=== PATIENT | male | born 1970 | race Caucasian/White ===

== ENCOUNTER 2021-07-16 13:59 | Emergency (ER) | payer OTHER, SELFPAY ==
[2021-07-16 14:20] VITALS: BP 123/96; PULSE 105; RESP 18; TEMP 37.7; O2SAT 94
--- NOTE | 2021-07-16 17:22 | PC.NURSE ---
Called pt to room at [phone] with no answer
== END 2021-07-16 18:48 | disposition left against medical advice (07) ==
PROVIDERS: PCP Internal Medicine
DX: R05.9 Cough, unspecified (principal)
CPT/HCPCS: 99199

== ENCOUNTER 2023-09-05 03:30 | Emergency (ER) | payer BC, SELFPAY ==
--- NOTE | ~2023-09-05 | CT_ITS ---
Non-contrast CT scan of the Abdomen and Pelvis Clinical indication: Flank pain Technique: 2.5 mm axial scans were obtained through the abdomen and pelvis without intravenous or or al contrast. Dose reduction technique was used on this scan by utilizing automated exposure control a nd iterative reconstruction technique. The dose-length product (DLP) was 878.03 mGy-cm. Findings: Images through the lung bases reveal no abnormalities. There is an 8 mm stone at the very proximal left ureter, with associated mild left hydronephrosis. 4 mm nonobstructing right renal stone present. No right ureteral stone or right hydronephrosis. Bilater al renal cysts are noted. Small hepatic cysts are present. The spleen, pancreas, gallbladder, and adrenals appear normal. Ther e is no aortic aneurysm. There is no evidence of bowel obstruction. Images through the pelvis were performed. There is no evidence of ascites or lymphadenopathy. Urinary bladder unremarkable. No pelvic mass seen. Impression: 8 mm proximal left ureteral stone with associated mild left hydronephrosis. 4 mm nonobstructing right renal stone. Reviewed, dictated and finalized at [facility]. MILL GRINDER Impression: 8 mm proximal left ureteral stone with associated mild left hydronephrosis. 4 mm nonobstructing right renal stone.
[2023-09-05 03:33] VITALS: BP 150/94; PULSE 83; RESP 16; TEMP 36.4; O2SAT 98
[2023-09-05 03:52] LABS: Basophils Percent Auto 0.3 % (0.2-1.2); Eosinophils Absolute Auto 0.2 K/mm3 (0-0.3); Eosinophils Percent Auto 2.1 % (0-4.4); Hematocrit 43.4 % (42.0-52.0); Immature Granulocyte Absolute 0.01 K/mm3 (0.00-0.031); Immature Granulocyte Percent A 0.1 % (0-0.5); Lymphocytes Absolute Auto 1.58 K/mm3 (0.9-3.2); Mean Corpuscular HGB Conc 34.6 g/dl (32-36); Mean Corpuscular Hemoglobin 32.7 pg (26-34); Mean Corpuscular Volume 94.6 fl (80-100); Mean Platelet Volume 9.3 fl (7.4-10.4); Monocytes Absolute Auto 0.6 K/mm3 (0.1-0.6); Monocytes Percent Auto 7.3 % (2.6-8.5); Neutrophils Absolute Auto 6.3 K/mm3 (1.3-6.7); Neutrophils Percent Auto 72.2 % (45.5-73.1); Platelet Count Result 298 k/mm3 (150-375); Red Blood Count 4.59 M/mm3 (4.6-6.20); Red Cell Distribution Width 12.4 % (11.5-14.5); White Blood Count 8.8 K/mm3 (4.5-10.0)
[2023-09-05 03:57] LABS: Appearance Urine Clear (Clear); Bacteria Urine None Seen /hpf; Bilirubin Urine Negative (Negative); Blood Urine 2+ (Negative); Color Urine Yellow (Yellow); Glucose Urine UA Negative (Negative); Ketones Urine Negative (Negative); Leukocyte Esterase Ur 2+ LEU/UL (Negative); Nitrate Urine Negative (Negative); Protein Urine Negative (Negative); Specific Grav Ur 1.017 (1.001-1.035); Squamous Epithelial Cell Urine Occasional /hpf (Few); Urobilinogen Urine 0.2 mg/dL (<2.0); WBC Urine 21-50 /hpf; pH Urine 5.5 (5.0-9.0)
[2023-09-05 04:01] LABS: Alanine Aminotransferase 25 U/L (6-50); Albumin Level 4.5 g/dL (3.5-5.1); Alkaline Phosphatase 71 U/L (38-126); Anion Gap 8 mmol/L (8-16); Aspartate Amino Transferase 28 U/L (17-59); Bilirubin,Total 0.6 mg/dL (0.2-1.3); Blood Urea Nitrogen 18 mg/dL (9-20); Calcium 10.2 mg/dL (8.4-10.2); Carbon Dioxide 30 mmol/L (22-30); Chloride 101 mmol/L (98-107); Estimated CRCL calculation 70 ml/min; Estimated Glomerular Filt Rate > 60; Glucose 117 mg/dL (65-110); Potassium 3.6 mmol/L (3.4-5.0); Sodium 139 mmol/L (137-145)
[2023-09-05 04:02] LABS: Lactic Acid Reflex 1.2 mmol/L (0.7-2.0)
[2023-09-05 04:04] LABS: Add Urine Microscopic? YES
[2023-09-05 06:01] VITALS: BP 146/97; PULSE 68; RESP 15; O2SAT 97
--- NOTE | 2023-09-05 06:34 | ED.ABDPAIN ---
HPI - Abdominal Pain General Chief Complaint: Abdominal Pain Stated Complaint: l side pain Time Seen by Provider: 09/05/23 06:20 History of Present Illness HPI narrative: Patient is a 53-year-old male who presents to the emergency department this evening complaining of left-sided flank pain. who is currently present at bedside states that the pain will come up from sleep and patient normally has a high pain tolerance and does not complain of much pain. By the time patient arrived to the emergency department, patient states that his pain has improved. He states that the pain does come and go. Patient denies any history of kidney stones in the past. He admits that his urine has been resting in color. Denies any dysuria. Patient denies any nausea or vomiting, admits that the pain starts in his left flank region and radiates to his left mid abdomen. Patient also denies any constipation or diarrhea, melena or hematochezia, fevers or chills. There are no other modifying, alleviating, or precipitating factors at this time. Related Data Allergies Allergy/AdvReac Type Severity Reaction Status Date / Time No Known Allergies Allergy Verified 09/22/17 22:45 Review of Systems Review of Systems: All systems are reviewed and are negative unless stated otherwise in the HPI. PMFSH Comments Denies any significant past medical or surgical history, denies any family history and denies any tobacco use, alcohol abuse or illicit drug use. Exam Narrative: General: Alert, awake, afebrile, in no acute distress. HEENT: PERRL, no rhinorrhea, no post nasal drip, oropharynx clear. Neck: Trachea midline, no JVD, no lymphadenopathy. Cardiovascular: Regular rate and rhythm, no murmurs, rubs or gallops, no peripheral edema. Respiratory: Clear to auscultation bilaterally, no tachypnea, no wheezing, no rhonchi, no rubs, no respiratory distress. Abdomen: Soft, nontender, nondistended, no rebound, no guarding, no peritoneal signs. Musculoskeletal: No joint swelling or deformity, normal muscle tone. Skin: No rashes or petechia, no signs of infection. Psychiatric: Alert and oriented, normal behavior and judgment for situation. Neurological: Alert and oriented to person, place, and time. Follows all commands. No focal deficits, speech is clear and fluent. Course Vital Signs Vital signs: Vital Signs Temperature 97.5 F L 09/05/23 03:33 Pulse Rate 83 09/05/23 03:33 Respiratory Rate 16 09/05/23 03:33 Blood Pressure 150/94 H 09/05/23 03:33 Pulse Oximetry 98 09/05/23 03:33 Oxygen Delivery Room Air 09/05/23 03:33 Temperature 97.5 F L 09/05/23 03:33 Pulse Rate 68 09/05/23 06:01 Respiratory Rate 15 09/05/23 06:01 Blood Pressure 146/97 H 09/05/23 06:01 Pulse Oximetry 97 09/05/23 06:01 Oxygen Delivery Room Air 09/05/23 03:33 MDM - Abdominal Pain MDM Narrative Medical decision making narrative: The patient was evaluated by myself in the emergency department. History is obtained from patient who is an independent historian along with present at bedside and physical exam was performed. External medical records were reviewed at this time. IV was established and pertinent tests were ordered. Patient was administered 50 mg of IV Toradol and 4 mg IV Zofran. Laboratory results obtained revealing no acute process. Urinalysis revealed 2+ blood. Imaging studies obtained included CT abdomen and pelvis with IV contrast which was independently interpreted by me revealing an 8 mm proximal left ureteral stone with associated mild left hydronephrosis and a 4 mm nonobstructing right renal stone. CT currently pending final radiology interpretation. Differential diagnosis considerations include kidney stones, musculoskeletal strain and pyelonephritis. Comorbidities impacting this visit include none. I have evaluated and discussed social determinants of health with the patient that could potentially impact subseq
[2023-09-05] MEDS: ONDANSETRON INJ 4 MG/2 ML VIAL IV PUSH (06:36)
[2023-09-05] MEDS: KETOROLAC 15 MG/ML VIAL (*BKC) IV PUSH (06:37)
== END 2023-09-05 06:50 | disposition home or self-care (01) ==
PROVIDERS: Emergency Provider Emergency Medicine; PCP Internal Medicine
DX: N20.0 Calculus of kidney (principal); R31.9 Hematuria, unspecified; R10.9 Unspecified abdominal pain
CPT/HCPCS: 36415; 74176; 80053; 81001; 83605; 85025; 87086; 96361; 96374; 96375; 99284; J1885; J2405

== ENCOUNTER 2023-09-10 10:40 | Outpatient (CLI) | payer BC, SELFPAY ==
--- NOTE | ~2023-09-10 | XR_ITS ---
EXAMINATION: XR abdomen/kub 1V DATE: 09/10/2023 10:54 INDICATION: Left ureteral stone. TECHNIQUE: A supine view of the abdomen on 2 radiographs was obtained. COMPARISON: CT abdomen and pelvis 09/05/23 FINDINGS: There are no dilated loops of bowel. There is a 10 x 4 mm stone in proximal left ureter. Th ere are phleboliths in the pelvis. IMPRESSION: 1. 10 x 4 mm stone in proximal left ureter. Reviewed, dictated and finalized at location A.
== END 2023-09-10 10:41 ==
PROVIDERS: PCP Urology; Visit Provider Urology
DX: N20.1 Calculus of ureter (principal)
CPT/HCPCS: 74018

== ENCOUNTER 2023-09-14 01:15 | Day surgery (SDC) | payer BC, SELFPAY ==
[2023-09-13 14:05] VITALS: BMI 31.6
--- NOTE | 2023-09-13 14:09 | PC.NURSE ---
Report to the Outpatient Waiting Room, entrance under the green pavilion located off [facility], at time 0900 on date 09/14/23. Planned Procedure Time: 1100. Time changes happen often and if your time is changed the preop area will call you the afternoon before. - You and your visitor will be asked to self-screen and do not enter if you have any COVID symptoms. - A mask is optional within the hospital at this time. Patients may have clear liquids (water, carbonated beverages, clear teas, apple juice) until 3 hours prior to surgery with a maximum of 20 ounces. - No food from midnight until time of surgery Take the following medications with a SIP of water the morning of surgery: PAIN PILL IF NEEDED DO NOT STOP ANY OF YOUR OTHER PRESCRIPTION MEDICATIONS PRIOR TO SURGERY ?EXCEPT THE FOLLOWING Medications to discontinue per physician: IBUPROFEN Date to take last dose: NO MORE UNTIL AFTER SURGERY Please no make-up, nail estonian, hairspray, perfume, deodorant, or body powder the day of surgery. No jewelry (including any body piercings) or valuables the day of surgery, leave them at home. Please take a shower or bath the night before, or the morning of, surgery with an antibacterial soap. Wear comfortable, loose fitting clothing. - Jewelry must be removed prior to entering the operating room. Rings and piercings that are not removed may be cut off. - The hospital will not accept responsibility for valuables. - Please leave all valuables, including medications, at home the day of surgery. If you are going home after surgery, a licensed seasonal driver must drive you home. - NO public transportation without another adult if you receive anesthesia. - We recommend that an adult stay with you for 24 hours following discharge. - We also recommend that you do not drive, make important decision, drink alcoholic beverages, or take any drugs that were not prescribed by your health care provider for at least 24 hours after your discharge time. Follow any additional instructions given to you from your surgeon. If you or anyone in your household have experienced Covid symptoms in the past week, please notify your surgeon or the nurse liaison at the phone number below for possible testing. Telephone instructions given to GREGG Gianna BAKER and asked if any additional questions and then verbalized understanding. Patient advised to call surgeon office or pre surgery nurse liaison [phone] if any additional questions.
--- NOTE | 2023-09-13 14:38 | WPDANESEPPF ---
Anes - Initial Pre Proc Eval Procedure: Operation Date: 09/14/23 11:00 Proposed Procedures p Left Extracorporeal Shock Wave Lithotripsy - Faheem Giraldo MD Date/Time: 09/13/23 14:38 Surgeon: Faheem Giraldo MD Pre Op Diagnosis: left ureteral stone Patient Data Age: 53 Gender: M Height: 1.75 m Weight: 97 kg Allergies Allergy/AdvReac Type Severity Reaction Status Date / Time No Known Allergies Allergy Verified 09/13/23 14:02 Home Medications Medication Instructions Recorded Confirmed Type hydrocodone 5 mg-acetaminophen 325 1 tablet PO Q8H PRN pain #10 tabs 09/05/23 09/13/23 Rx mg tablet ibuprofen 400 mg tablet 400 mg PO TID PRN pain #20 tabs 09/05/23 09/13/23 Rx glimepiride 2 mg tablet 2 mg PO BID 09/13/23 09/13/23 History lisinopril 10 1 tablet PO DAILY 09/13/23 09/13/23 History mg-hydrochlorothiazide 12.5 mg tablet metformin 500 mg tablet 500 mg PO BID 09/13/23 09/13/23 History tadalafil 20 mg tablet 20 mg PO PRN PRN Erectile 09/13/23 09/13/23 History Dysfunction Patient hx anesthesia problems: none Family hx anesthesia problems: none Results Review: All pre-operative results and documents have been reviewed as part of the pre-operative evaluation. [facility] Past Medical History Medical History (Updated 09/13/23 @ 14:39 by Jonathan Erickson DO) Diabetes type 2, controlled Hypertension Surgical History Surgical History (Updated 09/13/23 @ 14:39 by Jonathan Erickson DO) History of appendectomy Social History Social History Smoking status: Never smoker Alcohol intake: current Alcohol use details: SPECIAL OCCASIONS Substance use: never Substance use type: does not use Living arrangements: with family Spiritual care concerns: No Anes - Eval Final PreProcedure Day of Procedure 09/13/23 14:38 Patient weight: obese Heart: regular rate and rhythm Lungs: clear to auscultation Airway: Mallampati scale class II Neurological: alert and oriented Last oral intake: >/= 8 hours ASA classification: III Emergent: no Anesthetic plan: proceed Anesthesia type and monitoring: general LMA and standard monitoring Results Review: All pre-operative results and documents have been reviewed as part of the pre-operative evaluation. Informed Consent: The patient's anesthetic plan and its attendant risks and benefits were discussed with the patient/family/POA. Questions were solicited and answers provided to the satisfaction of the patient/family/POA.
[2023-09-14] VITALS (7 sets, daily range): BP systolic 126–156; BP diastolic 80–102; PULSE 66–81; RESP 16; TEMP 36.3–36.8; O2SAT 94–100
--- NOTE | ~2023-09-14 | XR_ITS ---
EXAMINATION: XR abdomen/kub 1V DATE: 09/14/2023 11:04 INDICATION: Left ureteral stone for planned shockwave lithotripsy TECHNIQUE: A supine view of the abdomen on 2 radiographs was obtained. COMPARISON: 09/10/2023 FINDINGS: No interval change in a 10 x 4 mm stone projecting over the proximal left ureter. A few phleboliths i n the pelvis. No dilated loops of gas-filled bowel to suggest obstruction. IMPRESSION: 1. Unchanged 10 x 4 mm proximal left ureteral stone. Reviewed, dictated and finalized at location B.
--- NOTE | 2023-09-14 09:03 | ECG_ITS ---
Measurements Intervals [place] Rate: 63 P: -30 VA: 159 QRS: -28 QRSD: 88 T: -30 QT: 366 QTc: 377 Interpretive Statements SINUS RHYTHM VOLTAGE CRITERIA FOR LVH INFERIOR INFARCT, AGE INDETERMINATE ABNORMAL ECG NO PREVIOUS ECG AVAILABLE FOR COMPARISON Electronically Signed On 09-14-2023 13:14:23 CDT by Kaden Esteves D.O.
[2023-09-14] MEDS: LACTATED RINGERS 1,000 ML 30 ML IV CONT (09:40)
[2023-09-14 09:58] LABS: INR 0.9; Partial Thromboplastin Time 26.3 Seconds (22.3-36.8); Prothrombin Time 12.2 Seconds (11.1-14.7)
[2023-09-14 09:59] LABS: Glucose Point of Care 103 mg/dl (65-105)
--- NOTE | 2023-09-14 10:01 | WPDHPUPDATE1 ---
History and Physical Update Update Date/Time: 09/14/23 10:01 History and Physical has been reviewed, including an updated exam of the patient. There are NO changes in the patient's condition. Risks, benefits, and alternatives have been discussed and questions answered. Patient agrees to proceed with procedure. Proceed with left renal/ureteral lithotripsy
[2023-09-14] MEDS: ceFAZolin 2 GM/D5W 50 ML 2 GM/50 ML BAG IVPB (10:10)
--- NOTE | 2023-09-14 10:53 | P.OP_ITS ---
Procedure Note - Detailed Date of Procedure 09/14/23 Pre-op Diagnosis left ureteral stone Post-op Diagnosis Same Procedure Performed Lithotripsy of left UPJ calculus 8 mm Surgeon Faheem Giraldo MD Anesthesia General Description of Procedure patient is taken to the operative suite correctly identified. Once anesthesia was obtained the stone was localized in both planes. Two thousand five hundred shocks were given the stone. Patient tolerated procedure well without complications and was taken recovery stable condition. He will follow-up in 7- 10 days with KUB. This completes dictation. Please send a copy of op note to my office. Estimated Blood Loss 0 Drains No Packing No Pathology None sent Complications No immediate complications Condition Stable Disposition PACU
[2023-09-14 11:32] LABS: Glucose Point of Care 89 mg/dl (65-105)
== END 2023-09-14 12:20 | disposition home or self-care (01) ==
PROVIDERS: PCP Internal Medicine; Visit Provider Urology
PROC: (CPT 50590; principal; 2023-09-14 11:00)
DX: N20.1 Calculus of ureter (principal); E11.9 Type 2 diabetes mellitus without complications; I10 Essential (primary) hypertension; Z79.84 Long term (current) use of oral hypoglycemic drugs; E66.9 Obesity, unspecified; Z68.30 Body mass index [BMI] 30.0-30.9, adult
CPT/HCPCS: 50590; 36415; 74018; 82948; 85610; 85730; 93005; J0690; J1100; J2405; J2704; J7120

== ENCOUNTER 2023-10-10 12:37 | Outpatient (CLI) | payer BC, SELFPAY ==
--- NOTE | ~2023-10-10 | XR_ITS ---
XR abdomen/kub 1V 10/10/2023 12:59 Indication: Left ureteral stone Procedure: KUB Comparison: 09/14/2023 Findings: There are bilateral renal stones. There are pelvic phleboliths. Nonobstructive bowel patter n. Moderate colonic fecal loading. There is calcification left upper abdomen, likely stone in the deena al collecting system. Mild lumbar spondylosis with levocurvature of the lumbar spine. Impression: 1: Bilateral nephrolithiasis. Reviewed, dictated and finalized at location A. Impression: 1: Bilateral nephrolithiasis.
== END 2023-10-10 12:38 | disposition home or self-care (01) ==
LOC: ANHIMG 12:39
PROVIDERS: PCP Internal Medicine; Visit Provider Urology
DX: N20.1 Calculus of ureter (principal)
CPT/HCPCS: 74018

== ENCOUNTER 2023-11-05 15:04 | Outpatient (CLI) | payer BC, SELFPAY ==
--- NOTE | ~2023-11-05 | XR_ITS ---
EXAMINATION: XR abdomen/kub 1V DATE: 11/05/2023 15:18 INDICATION: Left ureteral stone. TECHNIQUE: A supine view of the abdomen on 2 radiographs was obtained. COMPARISON: CT abdomen and pelvis 09/05/2023, abdomen radiographs 10/10/2023 FINDINGS: There is a 3 mm stone in right kidney. There is a 4 x 8 mm stone in proximal left ureter. T here are phleboliths in the pelvis. There are no dilated loops of bowel. IMPRESSION: 1. Stones in the right kidney and proximal left ureter. Reviewed, dictated and finalized at location A.
== END 2023-11-05 15:05 | disposition home or self-care (01) ==
PROVIDERS: PCP Internal Medicine; Visit Provider Urology
DX: N20.1 Calculus of ureter (principal)
CPT/HCPCS: 74018

== ENCOUNTER 2023-11-13 08:44 | Day surgery (SDC) | payer BC, SELFPAY ==
[2023-11-13] VITALS (22 sets, daily range): BP systolic 123–180; BP diastolic 74–107; PULSE 58–83; RESP 12–20; TEMP 36.2–36.8; O2SAT 92–99
--- NOTE | ~2023-11-13 | XR_ITS ---
EXAMINATION: XR abdomen/kub 1V DATE: 11/13/2023 10:52 INDICATION: Proximal left ureteral stone with abdominal pain radiating to the back TECHNIQUE: A supine view of the abdomen on 2 radiographs was obtained. COMPARISON: KUB dated 11/05/[address] dated 09/05/2023 FINDINGS: No interval change in a 9 x 4 mm stone in the proximal left ureter. The previously noted 3 mm stone i n the right kidney is unable to be identified, likely obscured by gas and stool in the superimposed h epatic flexure of the colon. No other evident urolithiasis. Unchanged pattern of phleboliths in the p mat. No dilated loops of gas-filled bowel to suggest obstruction. Mild to moderate lumbar spondylos is. IMPRESSION: 1. Unchanged 9 x 4 mm proximal left ureteral stone. Reviewed, dictated and finalized at location B.
--- NOTE | ~2023-11-13 | XR_ITS ---
EXAMINATION: XR retrograde pyelo w/stent LT DATE: 11/13/2023 13:45 INDICATION: Left ureteral stone. TECHNIQUE: 5 intraoperative fluoroscopic views of the abdomen and pelvis were obtained. I was not pre sent. Fluoroscopy exposure time was 21 seconds. COMPARISON: CT abdomen and pelvis 09/05/2023 FINDINGS: The left-sided retrograde pyelogram demonstrates mild hydronephrosis. There is a left inter nal ureteral stent in expected position. IMPRESSION: 1. Mild left hydronephrosis. 2. Left internal ureteral stent in expected position. Reviewed, dictated and finalized at location A.
--- NOTE | 2023-11-13 09:16 | ED.RECABL ---
HPI - Recheck/Abnormal Lab/Rx General Chief Complaint: Recheck/Abnormal Lab/Rx <Merary Chakraborty PA-C - Last Filed: 11/13/23 11:47> Stated Complaint: HTN <Merary Chakraborty PA-C - Last Filed: 11/13/23 11:47> Time Seen by Provider: 11/13/23 08:55 <PEDRO Barahona Last Filed: 11/13/23 11:47> Source: patient <PEDRO Barahona Last Filed: 11/13/23 11:47> Mode of arrival: ambulatory <PEDRO Barahona Last Filed: 11/13/23 11:47> Limitations: no limitations <PEDRO Barahona Last Filed: 11/13/23 11:47> History of Present Illness HPI narrative: Patient is a 53-year-old male who presents the ED with report of elevated blood pressure. Patient reports he had an employee health screen today at work and his blood pressure was noted to be elevated in the 160s-180s/100s. He had his blood pressure checked several times and was then sent here for further evaluation. Patient does have history of hypertension is on lisinopril/HCTZ 10-12.5 mg. He is compliant with this, has not missed any doses. Patient states he has been dealing with L flank/abd pain related to a known proximal 8 mm left-sided kidney stone, but otherwise was asymptomatic with the elevated blood pressure. Denies dizziness, lightheadedness, focal weakness or numbness, vision changes, chest pain, shortness of breath. Denies fevers. Denies difficulty urinating. He is planning to undergo stone extraction w/ Dr. Giraldo, waiting to hear back from office. <PEDRO Barahona Last Filed: 11/13/23 11:47> Related Data Home Medications: Home Medications Medication Instructions Recorded Confirmed glimepiride 2 mg tablet 2 mg PO BID 09/13/23 09/14/23 lisinopril 10 1 tablet PO DAILY 09/13/23 09/14/23 mg-hydrochlorothiazide 12.5 mg tablet metformin 500 mg tablet 500 mg PO BID 09/13/23 09/14/23 tadalafil 20 mg tablet 20 mg PO PRN PRN Erectile 09/13/23 09/14/23 Dysfunction <PEDRO Barahona Last Filed: 11/13/23 11:47> Allergies/Adverse Reactions: Allergies Allergy/AdvReac Type Severity Reaction Status Date / Time No Known Allergies Allergy Verified 11/13/23 12:19 <PEDRO Barahona Last Filed: 11/13/23 11:47> Review of Systems Review of Systems: CONSTITUTIONAL: Denies fever, chills, or sweats. ENT: Denies vision changes. CARDIOVASCULAR: Denies chest pain. RESPIRATORY: Denies dyspnea. GASTROINTESTINAL: Denies abdominal pain, nausea, vomiting. GENITOURINARY: Denies dysuria or hematuria. MUSCULOSKELETAL: See HPI. NEUROLOGIC: Denies headache, dizziness, numbness, or weakness. <PEDRO Barahona Last Filed: 11/13/23 11:47> All systems reviewed & are unremarkable except as noted in HPI and below <PEDRO Barahona Last Filed: 11/13/23 11:47> PMF Past Medical History Medical History: Medical History Diabetes type 2, controlled Hypertension <PEDRO Barahona Last Filed: 11/13/23 11:47> Surgical History Surgical History: Surgical History History of appendectomy <PEDRO Barahona Last Filed: 11/13/23 11:47> Social History Social History: Social History Smoking status: Never smoker Alcohol intake: current Alcohol use details: SPECIAL OCCASIONS Substance use: never Substance use type: does not use Living arrangements: with family Spiritual care concerns: No <PEDRO Barahona Last Filed: 11/13/23 11:47> Exam Narrative: GENERAL: Well appearing, obese with BMI of 31.2, non-toxic, in no acute distress. HEAD: Normocephalic, atraumatic. RESPIRATORY: Airway patent, respirations nonlabored. Clear to auscultation bilaterally, no rales, rhonchi, wheezing
[2023-11-13] MEDS: HYDROcodone/acetaminophen (*CRX) 5-325 MG TABLET 1 TAB PO (09:23)
[2023-11-13 09:28] LABS: Basophils Percent Auto 0.3 % (0.2-1.2); Eosinophils Absolute Auto 0.1 K/mm3 (0-0.3); Eosinophils Percent Auto 1.7 % (0-4.4); Hematocrit 38.8 % (42.0-52.0); Hemoglobin 13.5 g/dL (14.0-18.0); Immature Granulocyte Absolute 0.01 K/mm3 (0.00-0.031); Immature Granulocyte Percent A 0.2 % (0-0.5); Lymphocytes Percent Auto 25.8 % (18.3-44.2); Mean Corpuscular HGB Conc 34.8 g/dl (32-36); Mean Corpuscular Volume 94.9 fl (80-100); Mean Platelet Volume 9.3 fl (7.4-10.4); Monocytes Absolute Auto 0.4 K/mm3 (0.1-0.6); Monocytes Percent Auto 6.5 % (2.6-8.5); Neutrophils Absolute Auto 3.8 K/mm3 (1.3-6.7); Neutrophils Percent Auto 65.5 % (45.5-73.1); Platelet Count Result 252 k/mm3 (150-375); Red Blood Count 4.09 M/mm3 (4.6-6.20); Red Cell Distribution Width 13.6 % (11.5-14.5); White Blood Count 5.8 K/mm3 (4.5-10.0)
[2023-11-13 09:37] LABS: Alanine Aminotransferase 28 U/L (6-50); Albumin Level 4.3 g/dL (3.5-5.1); Alkaline Phosphatase 67 U/L (38-126); Anion Gap 10 mmol/L (4-12); Aspartate Amino Transferase 27 U/L (17-59); Bilirubin,Total 0.5 mg/dL (0.2-1.3); Blood Urea Nitrogen 13 mg/dL (9-20); Calcium 9.5 mg/dL (8.4-10.2); Carbon Dioxide 25 mmol/L (22-30); Chloride 104 mmol/L (98-107); Estimated CRCL calculation 90 ml/min; Estimated Glomerular Filt Rate > 60; Glucose 118 mg/dL (65-110); Potassium 3.2 mmol/L (3.4-5.0); Sodium 139 mmol/L (137-145)
[2023-11-13 09:38] LABS: Appearance Urine Cloudy (Clear); Bacteria Urine None Seen /hpf; Bilirubin Urine Negative (Negative); Blood Urine 3+ (Negative); Color Urine Yellow (Yellow); Glucose Urine UA Negative (Negative); Ketones Urine Negative (Negative); Leukocyte Esterase Ur Trace LEU/UL (Negative); Nitrate Urine Negative (Negative); Non Pathogenic Casts 0-2; Protein Urine Trace mg/dL (Negative); RBC Urine 21-50 /hpf (0-2); Specific Grav Ur 1.022 (1.001-1.035); Squamous Epithelial Cell Urine None Seen /hpf (Few); Urobilinogen Urine 0.2 mg/dL (<2.0); pH Urine 5.5 (5.0-9.0)
[2023-11-13] MEDS: POTASSIUM CHLORIDE 20 MEQ ER TABLET 40 MEQ PO (09:51)
[2023-11-13 09:52] LABS: Add Urine Microscopic? YES
[2023-11-13 10:13] LABS: Magnesium 1.7 mg/dL (1.6-2.3)
[2023-11-13] MEDS: LACTATED RINGERS 1,000 ML 30 ML IV CONT (11:44)
--- NOTE | 2023-11-13 11:54 | PC.NURSE ---
Spoke with OR nurse and patient is getting packed up to go to Pre- Op room 5
--- NOTE | 2023-11-13 12:10 | PM.IMHP ---
H&P: HPI History of Present Illness Date/Time: 11/13/23 12:10 Chief Complaint: Obstructing left proximal ureteral calculus Narrative: Elie is a 53-year-old male who underwent lithotripsy of a left proximal ureteral stone. He had poor fragmentation then presented to the emergency room with elevated blood pressure and left renal colic. Will proceed with definitive treatment of the stone with cystoscopy left retrograde pyelogram left ureteroscopy with stone extraction possible laser and stent placement Review of Systems Review of Systems: All systems reviewed & are unremarkable except as noted in HPI and below PMFSH Past Medical History Medical History Diabetes type 2, controlled Hypertension Surgical History Surgical History History of appendectomy Social History Social History Smoking status: Never smoker Alcohol intake: current Alcohol use details: SPECIAL OCCASIONS Substance use: never Substance use type: does not use Living arrangements: with family Spiritual care concerns: No Meds Home Medications and Allergies Home Medications Medication Instructions Recorded Confirmed Type hydrocodone 5 mg-acetaminophen 325 1 tablet PO Q8H PRN pain #10 tabs 09/05/23 09/14/23 Rx mg tablet ibuprofen 400 mg tablet 400 mg PO TID PRN pain #20 tabs 09/05/23 09/14/23 Rx glimepiride 2 mg tablet 2 mg PO BID 09/13/23 09/14/23 History lisinopril 10 1 tablet PO DAILY 09/13/23 09/14/23 History mg-hydrochlorothiazide 12.5 mg tablet metformin 500 mg tablet 500 mg PO BID 09/13/23 09/14/23 History tadalafil 20 mg tablet 20 mg PO PRN PRN Erectile 09/13/23 09/14/23 History Dysfunction sulfamethoxazole 800 1 tablet PO Q12H #6 tabs 09/14/23 Rx mg-trimethoprim 160 mg tablet (Bactrim DS) tramadol 50 mg tablet 50 mg PO Q6H PRN pain #20 tabs 09/14/23 Rx Allergies Allergy/AdvReac Type Severity Reaction Status Date / Time No Known Allergies Allergy Verified 11/13/23 08:52 Vital Signs Vital Signs - 24 hr 11/13/23 08:48 11/13/23 08:49 11/13/23 08:50 Temperature 36.8 C Pulse Rate 83 Respiratory Rate 16 Blood Pressure 180/106 H 180/106 H Pulse Oximetry 99 98 96 11/13/23 09:03 11/13/23 09:04 11/13/23 09:15 Temperature Pulse Rate 70 Respiratory Rate 20 Blood Pressure Pulse Oximetry 95 96 97 11/13/23 09:30 11/13/23 09:32 11/13/23 09:53 Temperature Pulse Rate 69 69 76 Respiratory Rate 18 17 16 Blood Pressure 163/99 H 163/99 H Pulse Oximetry 97 95 98 11/13/23 10:05 11/13/23 10:15 11/13/23 10:53 Temperature Pulse Rate 65 68 63 Respiratory Rate 18 16 18 Blood Pressure 156/107 H Pulse Oximetry 92 96 97 11/13/23 11:00 11/13/23 11:01 11/13/23 11:15 Temperature Pulse Rate 68 62 69 Respiratory Rate 15 12 14 Blood Pressure 151/106 H Pulse Oximetry 96 96 97 11/13/23 12:05 Temperature 36.8 C Pulse Rate 69 Respiratory Rate 18 Blood Pressure 157/107 H Pulse Oximetry 98 Exam Const: General: cooperative Resp: Effort & Inspection: normal respiratory effort Cardio: Rate: regular rate Rhythm: regular rhythm H&P: Results Labs Labs: Short CBC 11/13/23 Range/Units 09:16 WBC 5.8 (4.5-10.0) K/mm3 Hgb 13.5 L (14.0-18.0) g/dL Hct 38.8 L (42.0-52.0) % Plt Count 252 (150-375) k/mm3 BMP 11/13/23 09:16 Sodium 139 Potassium 3.2 L Chloride 104 Carbon Dioxide 25 BUN 13 D Creatinine 0.90 Glucose 118 H Calcium 9.5 Liver Function 11/13/23 Range/Units 09:16 Total Bilirubin 0.5 (0.2-1.3) mg/dL AST 27 (17-59) U/L ALT 28 (6-50) U/L Alkaline Phosphatase 67 (38-126) U/L Albumin 4.3 (3.5-5.1) g/dL Urine 11/13/23 Range/Units 09:19 Urine Color Yellow (Yellow) Urine Appearance [place]
--- NOTE | 2023-11-13 12:11 | WPDHPUPDATE1 ---
History and Physical Update Update Date/Time: 11/13/23 12:11 History and Physical has been reviewed, including an updated exam of the patient. There are NO changes in the patient's condition. Risks, benefits, and alternatives have been discussed and questions answered. Patient agrees to proceed with procedure.
--- NOTE | 2023-11-13 12:35 | WPDANESEPPF ---
Anes - Initial Pre Proc Eval Procedure: Operation Date: 11/13/23 13:00 Proposed Procedures p Cystoscopy,Left Retrograde Pyelogram,Left Ureteroscopy,Left Stone Extraction,Possible Holmium Laser,Possible Stent Placement - Faheem Giraldo MD Date/Time: 11/13/23 12:35 Surgeon: Faheem Giraldo MD Pre Op Diagnosis: HTN Patient Data Age: 53 Gender: M Height: 1.73 m Weight: 93 kg Last Vital Signs Temp 98.2 F 11/13/23 12:05 Pulse 69 11/13/23 12:05 Resp 18 11/13/23 12:05 BP 157/107 H 11/13/23 12:05 Pulse Ox 98 11/13/23 12:05 Allergies Allergy/AdvReac Type Severity Reaction Status Date / Time No Known Allergies Allergy Verified 11/13/23 12:19 Home Medications Medication Instructions Recorded Confirmed Type hydrocodone 5 mg-acetaminophen 325 1 tablet PO Q8H PRN pain #10 tabs 09/05/23 09/14/23 Rx mg tablet ibuprofen 400 mg tablet 400 mg PO TID PRN pain #20 tabs 09/05/23 09/14/23 Rx glimepiride 2 mg tablet 2 mg PO BID 09/13/23 09/14/23 History lisinopril 10 1 tablet PO DAILY 09/13/23 09/14/23 History mg-hydrochlorothiazide 12.5 mg tablet metformin 500 mg tablet 500 mg PO BID 09/13/23 09/14/23 History tadalafil 20 mg tablet 20 mg PO PRN PRN Erectile 09/13/23 09/14/23 History Dysfunction sulfamethoxazole 800 1 tablet PO Q12H #6 tabs 09/14/23 Rx mg-trimethoprim 160 mg tablet (Bactrim DS) tramadol 50 mg tablet 50 mg PO Q6H PRN pain #20 tabs 09/14/23 Rx Laboratory Tests 11/13/23 11/13/23 11/13/23 09:15 09:16 09:19 WBC 5.8 K/mm3 (4.5-10.0) RBC 4.09 L M/mm3 (4.6-6.20) Hgb 13.5 L g/dL (14.0-18.0) Hct 38.8 L % (42.0-52.0) MCV 94.9 fl (80-100) MCH 33.0 pg (26-34) MCHC 34.8 g/dl (32-36) RDW 13.6 % (11.5-14.5) Plt Count 252 k/mm3 (150-375) MPV 9.3 fl (7.4-10.4) Immature Gran % (Auto) 0.2 % (0-0.5) Neut % (Auto) 65.5 % (45.5-73.1) Lymph % (Auto) 25.8 % (18.3-44.2) [place] % (Auto) 6.5 % (2.6-8.5) Eos % (Auto) 1.7 % (0-4.4) Baso % (Auto) 0.3 % (0.2-1.2) Lymph # (Auto) 1.50 K/mm3 (0.9-3.2) [place] # (Auto) 0.4 K/mm3 (0.1-0.6) Eos # (Auto) 0.1 K/mm3 (0-0.3) Baso # (Auto) 0.0 K/mm3 (0.0-0.1) Abs Immat Gran (auto) 0.01 K/mm3 (0.00-0.031) Absolute Neuts (auto) 3.8 K/mm3 (1.3-6.7) Absolute Nucleated RBC 0.000 K/mm3 (0.0-0.012) Nucleated RBC % 0.0 % (0.0-0.2) Sodium 139 mmol/L (137-145) Potassium 3.2 L mmol/L (3.4-5.0) Chloride 104 mmol/L (98-107) Carbon Dioxide 25 mmol/L (22-30) Anion Gap 10 mmol/L (4-12) BUN 13 D mg/dL (9-20) Creatinine 0.90 mg/dL (0.7-1.3) Estim Creat Clear Calc 90 ml/min Estimated GFR > 60 (59 - ) Glucose 118 H mg/dL (65-110) Calcium 9.5 mg/dL (8.4-10.2) Magnesium 1.7 mg/dL (1.6-2.3) Total Bilirubin 0.5 mg/dL (0.2-1.3) AST 27 U/L (17-59) ALT 28 U/L (6-50) Alkaline Phosphatase 67 U/L (38-126) Total Protein 7.0 g/dL (6.3-8.2) Albumin 4.3 g/dL (3.5-5.1) Urine Color Yellow (Yellow) Urine Appearance Cloudy H (Clear) Urine pH 5.5 (5.0-9.0) Ur Specific [place] 1.022 (1.001-1.035) Urine Protein Trace mg/dL (Negative) Urine Glucose (UA) Negative mg/dL (Negative) Urine Ketones Negative mg/dL (Negative) Ur Blood (Man) 3+ H (Negative) Urine Nitrate Negative (Negative) Urine Bilirubin Negative (Negative) Urine Urobilinogen 0.2 mg/dL (<2.0) Leukocyte Esterase Rfl Trace H DEISY/UL (Negative) Urine RBC 21-50 H /hpf
[2023-11-13 12:48] LABS: Glucose Point of Care 61 mg/dl (65-105)
[2023-11-13] MEDS: DEXTROSE 50% 25 GM/50 ML SYRINGE IV PUSH (12:50)
[2023-11-13 12:53] LABS: Glucose Point of Care 62 mg/dl (65-105)
[2023-11-13] MEDS: ceFAZolin 2 GM/D5W 50 ML 2 GM/50 ML BAG IVPB (13:00)
--- NOTE | 2023-11-13 13:03 | SUR.PREOP ---
1247- PT ARRIVED TO PRE OP. BLOOD SUGAR READING 61, RECHECKED READING 62. SPOKE WITH ANESTHESIA, RECEIVED ORDER FOR 1/2 AMP OF D50 IVP. BLOOD SUGAR WILL BE RECHECKED ON ARRIVAL TO PACU.
[2023-11-13] MEDS: LIDOCAINE HCL 2% GEL UROJET 10 ML PKG MUCOUS MEM (13:25)
--- NOTE | 2023-11-13 13:45 | W.PM.PROC2 ---
Procedure Note - Detailed Date of Procedure 11/13/23 Pre-op Diagnosis Obstructing left proximal ureteral calculus 9 mm Post-op Diagnosis Same Procedure Performed Cystoscopy, left retrograde pyelogram, left ureteroscopy with holmium laser, stone extraction, left ureteral stent placement 4.8 Ukrainian contour Surgeon Faheem Giraldo MD Anesthesia General Description of Procedure Patient is taken to the operative suite correctly identified. Once anesthesia was obtained he was placed in dorsal lithotomy position and prepped and draped usual sterile fashion. Twenty-two Ukrainian scope inserted into the bladder. There were no tumors noted. Left ureteral orifice was cannulated with a guidewire. Ureteral access sheath was placed. Mini flexible ureteral scope was then inserted all the way up to the left proximal stone. It was too large to retrieved in 1 piece. Two hundred micron fiber was used to fragment and dust the stone. Couple of the larger pieces were sent for analysis. Pyelogram was then performed confirm placement of the stent. 4.8 Ukrainian contour stent was placed with the proximal end coiled in the renal pelvis and the distal in the bladder. Bladder was drained. 2% viscous lidocaine was inserted into the urethra patient is taken recovery stable condition. He will follow-up in a week's time for stent removal. This completes dictation. Please send a copy of op note to my office. Estimated Blood Loss 0 Drains Yes Packing No Pathology Yes Complications No immediate complications Condition Stable Disposition PACU
[2023-11-13 14:10] LABS: Glucose Point of Care 85 mg/dl (65-105)
== END 2023-11-13 15:20 | disposition home or self-care (01) ==
LOC: ANHED 11:47 → ANHSURGERY 11:57
PROVIDERS: Emergency Provider Physician Assistant; PCP Internal Medicine; Visit Provider Urology
PROC: (CPT 52352; principal; 2023-11-13 13:00)
DX: N20.1 Calculus of ureter (principal); I10 Essential (primary) hypertension; E11.9 Type 2 diabetes mellitus without complications; Z79.84 Long term (current) use of oral hypoglycemic drugs; E66.9 Obesity, unspecified; Z68.31 Body mass index [BMI] 31.0-31.9, adult
CPT/HCPCS: 52356; 36415; 74018; 74420; 80053; 81001; 82365; 82948; 83735; 85025; 87086; 88300; 99285; A9270; C1769; C1894; C2617; J0330; J0690; J1100; J2250; J2405; J2704; J7120; Q9966

== ENCOUNTER 2023-11-14 16:26 | Emergency (ER) | payer BC, SELFPAY ==
--- NOTE | ~2023-11-14 | XR_ITS ---
EXAMINATION: XR chest 2V DATE: 11/14/2023 18:38 INDICATION: Chest pain. TECHNIQUE: Frontal and lateral views of the chest were obtained. COMPARISON: Chest 2 views 09/23/2017, CT abdomen and pelvis 09/05/2023 FINDINGS: There are airspace opacities in left mid and lower lung zones. No pleural effusion or pneum othorax. The heart size is normal. IMPRESSION: 1. Mild airspace opacities in left mid and lower lung zones, consistent with atelectasis versus pneum onia. Reviewed, dictated and finalized at location E. IMPRESSION: 1. Mild airspace opacities in left mid and lower lung zones, consistent with at electasis versus pneumonia.
[2023-11-14 16:41] VITALS: BP 152/93; PULSE 93; RESP 17; TEMP 36.4; O2SAT 97
--- NOTE | 2023-11-14 17:39 | ECG_ITS ---
SEE SCANNED COPY FOR CONFIRMED REPORT MTDD
[2023-11-14] MEDS: MORPHINE SULFATE (*CRX) 2 MG/ML INJ IV PUSH (18:00)
[2023-11-14 18:19] LABS: Basophils Percent Auto 0.2 % (0.2-1.2); Eosinophils Absolute Auto 0.1 K/mm3 (0-0.3); Eosinophils Percent Auto 0.9 % (0-4.4); Hematocrit 42.8 % (42.0-52.0); Hemoglobin 14.2 g/dL (14.0-18.0); Immature Granulocyte Absolute 0.03 K/mm3 (0.00-0.031); Immature Granulocyte Percent A 0.2 % (0-0.5); Lymphocytes Absolute Auto 1.66 K/mm3 (0.9-3.2); Lymphocytes Percent Auto 13.5 % (18.3-44.2); Mean Corpuscular HGB Conc 33.2 g/dl (32-36); Mean Corpuscular Hemoglobin 32.3 pg (26-34); Mean Corpuscular Volume 97.3 fl (80-100); Mean Platelet Volume 9.6 fl (7.4-10.4); Monocytes Absolute Auto 0.5 K/mm3 (0.1-0.6); Neutrophils Percent Auto 81.2 % (45.5-73.1); Platelet Count Result 251 k/mm3 (150-375); Red Cell Distribution Width 13.6 % (11.5-14.5); White Blood Count 12.3 K/mm3 (4.5-10.0)
[2023-11-14 18:25] VITALS: BP 145/95; PULSE 77; RESP 18; O2SAT 95
[2023-11-14 18:30] LABS: Alanine Aminotransferase 26 U/L (6-50); Albumin Level 4.2 g/dL (3.5-5.1); Alkaline Phosphatase 70 U/L (38-126); Anion Gap 9 mmol/L (4-12); Aspartate Amino Transferase 24 U/L (17-59); Bilirubin,Total 0.6 mg/dL (0.2-1.3); Blood Urea Nitrogen 15 mg/dL (9-20); Calcium 9.3 mg/dL (8.4-10.2); Carbon Dioxide 28 mmol/L (22-30); Chloride 104 mmol/L (98-107); Estimated CRCL calculation 91 ml/min; Estimated Glomerular Filt Rate > 60; Glucose 154 mg/dL (65-110); Potassium 3.2 mmol/L (3.4-5.0); Sodium 141 mmol/L (137-145)
[2023-11-14 18:31] LABS: Prothrombin Time 13.2 Seconds (11.1-14.7)
[2023-11-14 18:32] LABS: Partial Thromboplastin Time 28.1 Seconds (22.3-36.8)
--- NOTE | 2023-11-14 18:40 | ED.GENADULT ---
HPI - General Adult General Chief complaint: Recheck/Abnormal Lab/Rx Stated complaint: blood pressure Time Seen by Provider: 11/14/23 17:14 History of Present Illness HPI narrative: patient is a 53-year-old male who presents ER with concerns of elevated blood pressures. Systolic blood pressure in the 200s at home. Reports since this morning he has been having some tightness in his neck as well as some achiness in the chest. He is concerned that this is related to the blood pressure. He did have a surgery yesterday to remove the kidney stone have stent placed. No abdominal pain. No urinary frequency urgency or dysuria. No fevers or chills. Cannot describe any aggravating alleviating factors. Pain is posterior long paraspinal muscles. Related Data Home Medications Medication Instructions Recorded Confirmed glimepiride 2 mg tablet 2 mg PO BID 09/13/23 09/14/23 lisinopril 10 1 tablet PO DAILY 09/13/23 09/14/23 mg-hydrochlorothiazide 12.5 mg tablet metformin 500 mg tablet 500 mg PO BID 09/13/23 09/14/23 tadalafil 20 mg tablet 20 mg PO PRN PRN Erectile 09/13/23 09/14/23 Dysfunction Allergies Allergy/AdvReac Type Severity Reaction Status Date / Time No Known Allergies Allergy Verified 11/13/23 12:19 Review of Systems Review of Systems: All systems reviewed & are unremarkable except as noted in HPI and below Constitutional: Constitutional: Reports no additional constitutional complaints ENT: Reports system reviewed and no additional complaints, except as documented Cardiovascular: Cardiovascular: Reports no additional cardiovascular complaints Respiratory: Respiratory: Reports no additional respiratory complaints Gastrointestinal: Gastrointestinal: Reports no additional gastrointestinal complaints Genitourinary: Genitourinary: Reports no additional male genitourinary complaints [facility] Past Medical History Medical History (Updated 11/14/23 @ 20:23 by Rafael Harding MD) Diabetes type 2, controlled Hypertension Kidney stones Ureteral stent present Surgical History Surgical History History of appendectomy Social History Social History Smoking status: Never smoker Alcohol intake: current Alcohol use details: SPECIAL OCCASIONS Substance use: never Substance use type: does not use Living arrangements: with family Spiritual care concerns: No Exam Narrative: GENERAL: Well-appearing, well-nourished, and in no acute distress. HEAD: Normocephalic, atraumatic. EYES: PERRL and EOMI. ENT: Mucous membranes moist. CHEST: Clear to auscultation. No respiratory distress. HEART: Regular rate and rhythm. Normal peripheral pulses. ABDOMEN: Soft, nontender, nondistended. EXTREMITIES: Normal range of motion. No edema. SKIN: Warm, dry, no rash. bruising to the right antecubital fossa from IV placement. NEURO: No focal deficits. Alert and oriented x3. PSYCH: Normal mood and affect. Course Course Emergency Course: Patient resting comfortably. Informed of results. Appropriate for discharge home. No evidence a cardiac issue. Blood pressure has been in the 150s and 160s. Chest x-ray is borderline for pneumonia. Given elevated white blood cell count will place on antibiotics. Vital Signs Vital signs: Vital Signs Temperature 97.6 F 11/14/23 16:41 Pulse Rate 93 11/14/23 16:41 Respiratory Rate 17 11/14/23 16:41 Blood Pressure 152/93 H 11/14/23 16:41 Pulse Oximetry 97 11/14/23 16:41 Oxygen Delivery Room Air 11/14/23 16:41 Temperature 97.6 F 11/14/23 16:41 Pulse Rate 76 11/14/23 19:17 Respiratory Rate 18 11/14/23 19:17 Blood Pressure 171/93 H 11/14/23 19:17 Pulse Oximetry 93 11/14/23 19:17 Oxygen Delivery Room Air 11/14/23 16:41 Medical Decision Making Vital Signs Vital Signs: Vital Signs Temperatur
[2023-11-14 18:41] LABS: Troponin I < 0.012 ng/mL (0.000-0.034)
[2023-11-14 19:17] VITALS: BP 171/93; PULSE 76; RESP 18; O2SAT 93
[2023-11-14 20:40] VITALS: BP 170/106; PULSE 77; RESP 18; O2SAT 95
== END 2023-11-14 20:40 | disposition home or self-care (01) ==
PROVIDERS: Emergency Provider Emergency Medicine; PCP Internal Medicine
DX: J18.9 Pneumonia, unspecified organism (principal); I10 Essential (primary) hypertension; E11.9 Type 2 diabetes mellitus without complications
CPT/HCPCS: 36415; 71046; 80053; 84484; 85025; 85610; 85730; 93005; 96374; 99284; J2270

== ENCOUNTER 2023-12-01 09:10 | Emergency (ER) | payer BC, SELFPAY ==
--- NOTE | ~2023-12-01 | XR_ITS ---
XR abdomen/kub 1V DATE: 12/01/2023 11:11 INDICATION: Question of migration of previously identified right kidney stone TECHNIQUE: Portable supine AP view COMPARISON: 11/13/2023 left retrocardiac pyelogram 11/13/2023 KUB FINDINGS: Very faintly calcified small stone is again suggested in the lower pole of the right kidney , not apparently significant change since 11/05/2023 KUB. No other apparent urinary tract calcification is noted. The previously noted proximal left ureteral c alcified calculus is not identified. Bilateral calcified pelvic phleboliths. The sutures are intact. No visceromegaly is noted. No evidence of bowel obstruction. IMPRESSION: Small faintly calcified lower pole right renal calculus appears stable since 11/05/2023. Noncontrast CT abdomen pelvis examination is more accurate and sensitive for detection of urinary tra ct calculi. Reviewed, dictated and finalized at Location A. Reviewed, dictated and finalized at location A. IMPRESSION: Small faintly calcified lower pole right renal calculus appears sta ble since 11/05/2023. Noncontrast CT abdomen pelvis examination is more accurate and sensitive for de tection of urinary tract calculi.
--- NOTE | ~2023-12-01 | CT_ITS ---
EXAMINATION: CT abdomen pelvis wo con DATE: 12/01/2023 11:48 INDICATION: Right flank pain. Recent left lithotripsy and stent placement. TECHNIQUE: Computed tomography (CT) of the abdomen and pelvis was performed without intravenous contr ast. Automated exposure control and iterative reconstruction technique were employed. Exam dose: 362 .01 mGy-cm total exam DLP. COMPARISON: 12/01/2023 KUB 09/05/2023 CT abdomen pelvis FINDINGS: Lung bases are clear. Normal heart size. No pericardial or pleural effusion. Several hepatic cysts. The liver, spleen, pancreas, and adrenal glands are otherwise unremarkable. Approximately 3.9 mm calculus is present at the proximal right ureter at L2-3 level, not evident radi ographically even in retrospect on 12/01/2023 KUB. Minimal right hydronephrosis. Pinpoint nonobstructing mid right renal calculus. No left renal or ureteral calculus or hydroureteronephrosis. Bilateral stable renal cysts are again noted. The urinary bladder and prostate gland are unremarkable. Bilateral fat-containing inguinal hernias. Normal caliber of the abdominal aorta. No intraperitoneal or retroperitoneal or pelvic mass lesion or adenopathy or ascites. Diverticulosis of the colon; no CT evidence of diverticulitis. No bowel obstruction, bowel wall thick ening, pneumatosis or intraperitoneal free air. No suspicious osteolytic or osteoblastic lesions. IMPRESSION: 3.9 mm proximal right ureteral calculus with minimal right hydroureteronephrosis No left urinary tract calculus or hydronephrosis Bilateral renal cysts, hepatic cysts Diverticulosis of the colon; no CT evidence of diverticulitis Bilateral fat-containing inguinal hernias Reviewed, dictated and finalized at Location A. Reviewed, dictated and finalized at location A. IMPRESSION: 3.9 mm proximal right ureteral calculus with minimal right hydrour eteronephrosis No left urinary tract calculus or hydronephrosis Bilateral renal cysts, hepatic cysts Diverticulosis of the colon; no CT evidence of diverticulitis Bilateral fat-containing inguinal hernias
[2023-12-01 09:13] VITALS: BP 168/102; PULSE 86; RESP 18; TEMP 36.4; O2SAT 100
[2023-12-01 09:27] LABS: Basophils Percent Auto 0.5 % (0.2-1.2); Eosinophils Absolute Auto 0.1 K/mm3 (0-0.3); Eosinophils Percent Auto 0.7 % (0-4.4); Hematocrit 43.5 % (42.0-52.0); Hemoglobin 14.9 g/dL (14.0-18.0); Immature Granulocyte Absolute 0.02 K/mm3 (0.00-0.031); Immature Granulocyte Percent A 0.2 % (0-0.5); Lymphocytes Absolute Auto 1.16 K/mm3 (0.9-3.2); Lymphocytes Percent Auto 13.2 % (18.3-44.2); Mean Corpuscular HGB Conc 34.3 g/dl (32-36); Mean Corpuscular Hemoglobin 33.2 pg (26-34); Mean Corpuscular Volume 96.9 fl (80-100); Mean Platelet Volume 9.2 fl (7.4-10.4); Monocytes Absolute Auto 0.4 K/mm3 (0.1-0.6); Monocytes Percent Auto 4.9 % (2.6-8.5); Neutrophils Absolute Auto 7.1 K/mm3 (1.3-6.7); Neutrophils Percent Auto 80.5 % (45.5-73.1); Platelet Count Result 321 k/mm3 (150-375); Red Blood Count 4.49 M/mm3 (4.6-6.20); Red Cell Distribution Width 13.4 % (11.5-14.5); White Blood Count 8.8 K/mm3 (4.5-10.0)
[2023-12-01] MEDS: ONDANSETRON INJ 4 MG/2 ML VIAL IV PUSH ×2 (09:37→10:45)
[2023-12-01] MEDS: MORPHINE SULFATE (*CRX) 4 MG/ML INJ IV PUSH (09:37)
[2023-12-01 09:38] LABS: Alanine Aminotransferase 32 U/L (6-50); Albumin Level 4.6 g/dL (3.5-5.1); Alkaline Phosphatase 70 U/L (38-126); Anion Gap 8 mmol/L (4-12); Aspartate Amino Transferase 27 U/L (17-59); Bilirubin,Total 0.5 mg/dL (0.2-1.3); Blood Urea Nitrogen 18 mg/dL (9-20); Calcium 10.1 mg/dL (8.4-10.2); Carbon Dioxide 29 mmol/L (22-30); Chloride 103 mmol/L (98-107); Estimated CRCL calculation 59 ml/min; Estimated Glomerular Filt Rate 53; Glucose 192 mg/dL (65-110); Sodium 140 mmol/L (137-145)
[2023-12-01 10:18] LABS: Appearance Urine Cloudy (Clear); Bacteria Urine None Seen /hpf; Bilirubin Urine Negative (Negative); Blood Urine 3+ (Negative); Calcium Oxalate Crystals Urine Present /hpf; Color Urine Yellow (Yellow); Glucose Urine UA Negative (Negative); Ketones Urine Trace mg/dL (Negative); Leukocyte Esterase Ur Negative LEU/UL (Negative); Nitrate Urine Negative (Negative); Non Pathogenic Casts 0-2; Protein Urine 1+ mg/dL (Negative); Specific Grav Ur 1.022 (1.001-1.035); Squamous Epithelial Cell Urine None Seen /hpf (Few); WBC Urine 0-5 /hpf (0-3)
[2023-12-01 10:19] LABS: Add Urine Microscopic? YES
[2023-12-01 10:46] VITALS: BP 160/93; PULSE 66; RESP 16; TEMP 36.6; O2SAT 98
[2023-12-01] MEDS: HYDROmorphone HCL INJ (*CRX) 1 MG/ML SYR IV PUSH (10:46)
--- NOTE | 2023-12-01 10:51 | ED.GENADULT ---
HPI - General Adult General Chief complaint: Urogenital-Male Stated complaint: Possible Kidney Stone Time Seen by Provider: 12/01/23 09:36 History of Present Illness HPI narrative: 53-year-old male with history of ureteral calculi present to the emergency department for evaluation for right flank pain. Patient recently had a 9 by for kidney stone that required intervention and stenting by Urology. Patient had the stent of the left removed approximately 1 week ago. Patient reports last night he began having similar discomfort on the right and suspects that a previously identified kidney stone in the right kidney has moved down. Patient describes right-sided flank pain that radiates to his right lower quadrant and to his groin. Patient does have associated nausea and vomiting. Patient follows up with Dr Giraldo Related Data Home Medications Medication Instructions Recorded Confirmed glimepiride 2 mg tablet 2 mg PO BID 09/13/23 09/14/23 lisinopril 10 1 tablet PO DAILY 09/13/23 09/14/23 mg-hydrochlorothiazide 12.5 mg tablet metformin 500 mg tablet 500 mg PO BID 09/13/23 09/14/23 tadalafil 20 mg tablet 20 mg PO PRN PRN Erectile 09/13/23 09/14/23 Dysfunction Allergies Allergy/AdvReac Type Severity Reaction Status Date / Time No Known Allergies Allergy Verified 11/13/23 12:19 Review of Systems Review of Systems: All systems reviewed & are unremarkable except as noted in HPI and below PMFSH Past Medical History Medical History (Updated 12/01/23 @ 13:11 by Francis Quesada MD) Diabetes type 2, controlled Hypertension Kidney stones Ureteral stent present Surgical History Surgical History History of appendectomy Social History Social History Smoking status: Never smoker Alcohol intake: current Alcohol use details: SPECIAL OCCASIONS Substance use: never Substance use type: does not use Living arrangements: with family Spiritual care concerns: No Exam Narrative: APPEARANCE: Well-appearing after pain medication HEAD: normocephalic, atraumatic. EYES: PERRLA/EOMI, conjunctivae clear. NOSE: Normal no drainage EARS:TMS clear with good light reflex. THROAT: Pharynx clear, no exudate. NECK: Supple. No adenopathy, no masses. RESPIRATORY: Airway patent, respirations nonlabored. Clear to auscultation bilaterally, no rales, rhonchi, wheezing. CARDIOVASCULAR: Regular rate and rhythm without murmurs rubs or gallops. ABDOMINAL: Right CVA tenderness to palpation MUSCULOSKELETAL: Moves all extremities. Strength/ROM intact, No edema, No calf tenderness. NEURO: Alert. Cranial nerves II through XII intact. Course Vital Signs Vital signs: Vital Signs Temperature 97.5 F L 12/01/23 09:13 Pulse Rate 86 12/01/23 09:13 Respiratory Rate 18 12/01/23 09:13 Blood Pressure 168/102 H 12/01/23 09:13 Pulse Oximetry 100 12/01/23 09:13 Oxygen Delivery Room Air 12/01/23 09:13 Temperature 97.9 F 12/01/23 12:46 Pulse Rate 66 12/01/23 13:01 Respiratory Rate 16 12/01/23 13:01 Blood Pressure 126/70 12/01/23 13:01 Pulse Oximetry 97 12/01/23 13:01 Oxygen Delivery Room Air 12/01/23 09:[address] [facility] Narrative Medical decision making narrative: 53-year-old male present to the emergency department for evaluation for acute right flank pain with a known kidney stone. Start with an x-ray but x-ray did not visualize a moved stone. CT scan did show 3.9 mm proximal right ureteral calculi. Patient's pain was improved with pain medication given the emergency department. Patient is afebrile with no leukocytosis and a stable hemoglobin, patient did have some mild MALI with a creatinine of 1.4 the typical baseline closer to 1. Patient was treated with a L of normal saline. Patient did have ketones in his urine along with hematuria. Leona
[2023-12-01] MEDS: SODIUM CHLORIDE 0.9% IV 1,000 ML 999 ML IV CONT (11:54)
[2023-12-01 12:16] VITALS: BP 138/75; TEMP 36.6; O2SAT 90
[2023-12-01 12:46] VITALS: BP 136/80; PULSE 64; RESP 16; TEMP 36.6; O2SAT 97
[2023-12-01 13:01] VITALS: BP 126/70; PULSE 66; RESP 16; O2SAT 97
[2023-12-01] MEDS: HYDROcodone/acetaminophen (*CRX) 5-325 MG TABLET 1 TAB PO (13:19)
== END 2023-12-01 13:29 | disposition home or self-care (01) ==
PROVIDERS: Student in an Organized Health Care Education/Training Program; Emergency Provider Emergency Medicine; PCP Internal Medicine
DX: R10.9 Unspecified abdominal pain (principal); N13.2 Hydronephrosis with renal and ureteral calculous obstruction; E11.9 Type 2 diabetes mellitus without complications; Z79.84 Long term (current) use of oral hypoglycemic drugs; I10 Essential (primary) hypertension; Z87.442 Personal history of urinary calculi
CPT/HCPCS: 36415; 74018; 74176; 80053; 81001; 85025; 96361; 96374; 96375; 96376; 99284; A9270; J1170; J2270; J2405; J7030